=== PATIENT | male | born 1960 | race African-American/Black ===

== ENCOUNTER 2017-07-25 20:01 | Emergency (ER) | payer SELFPAY ==
[~2017-07-25] VITALS: Ht 177.8 cm; Wt 73.0 kg
[2017-07-25 20:05] VITALS: BP 137/90
== END 2017-07-25 22:00 | disposition left against medical advice (07) ==
LOC: ER 20:24
DX: Z53.21 Procedure and treatment not carried out due to patient leaving prior to being seen by health care provider (principal)